=== PATIENT | male | born 1945 | race Caucasian/White ===

== ENCOUNTER 2021-05-16 06:00 | Outpatient (RCR) | payer OTHER, SELFPAY | END 2021-05-20 23:59 | disposition home or self-care (01) | LOC: TPT 06:00 | PROVIDERS: Visit Provider Physician Assistant | DX: R26.9 Unspecified abnormalities of gait and mobility (principal) | CPT/HCPCS: 97110; 97140; 97163 ==

== ENCOUNTER 2021-05-21 06:00 | Outpatient (RCR) | payer OTHER, SELFPAY | END 2021-06-20 23:59 | disposition home or self-care (01) | LOC: TPT 06:00 | PROVIDERS: Visit Provider Physician Assistant | DX: R26.9 Unspecified abnormalities of gait and mobility (principal) | CPT/HCPCS: 97110; 97116; 97140; 97164 ==

== ENCOUNTER 2021-06-21 06:00 | Outpatient (RCR) | payer OTHER, SELFPAY | END 2021-07-11 23:59 | disposition home or self-care (01) | LOC: TPT 06:00 | PROVIDERS: Visit Provider Physician Assistant | DX: R26.9 Unspecified abnormalities of gait and mobility (principal) | CPT/HCPCS: 97110 ==

== ENCOUNTER 2022-12-10 06:00 | Outpatient (RCR) | payer OTHER, SELFPAY | END 2022-12-18 23:59 | disposition home or self-care (01) | LOC: TPT 06:00 | PROVIDERS: Visit Provider Nurse Practitioner | DX: Z47.1 Aftercare following joint replacement surgery (principal); Z96.652 Presence of left artificial knee joint | CPT/HCPCS: 97110; 97162 ==

== ENCOUNTER 2022-12-19 06:00 | Outpatient (RCR) | payer OTHER, SELFPAY | END 2023-01-18 23:59 | disposition home or self-care (01) | LOC: TPT 06:00 | PROVIDERS: Visit Provider Nurse Practitioner | DX: Z47.1 Aftercare following joint replacement surgery (principal); Z96.652 Presence of left artificial knee joint | CPT/HCPCS: 97110 ==

== ENCOUNTER 2023-01-19 06:00 | Outpatient (RCR) | payer OTHER, SELFPAY | END 2023-01-29 23:59 | disposition home or self-care (01) | LOC: TPT 06:00 | PROVIDERS: Visit Provider Nurse Practitioner | DX: Z47.1 Aftercare following joint replacement surgery (principal); Z96.652 Presence of left artificial knee joint | CPT/HCPCS: 97110 ==

== ENCOUNTER 2023-05-21 06:00 | Outpatient (RCR) | payer OTHER, SELFPAY | END 2023-06-20 23:59 | disposition home or self-care (01) | LOC: TPT 06:00 | PROVIDERS: Visit Provider Orthopaedic Surgery | DX: Z47.1 Aftercare following joint replacement surgery (principal); Z96.651 Presence of right artificial knee joint | CPT/HCPCS: 97110; 97161 ==

== ENCOUNTER 2023-06-21 06:00 | Outpatient (RCR) | payer OTHER, SELFPAY | END 2023-07-09 23:59 | disposition home or self-care (01) | LOC: TPT 06:00 | PROVIDERS: Visit Provider Orthopaedic Surgery | DX: Z47.1 Aftercare following joint replacement surgery (principal); Z96.651 Presence of right artificial knee joint | CPT/HCPCS: 97110 ==

== ENCOUNTER → 2024-09-07 14:11 | Outpatient (BNVA) | payer OTHER, SELFPAY | PROVIDERS: Visit Provider Orthopaedic Surgery | DX: X58.XXXA Exposure to other specified factors, initial encounter (principal); M54.41 Lumbago with sciatica, right side; M54.42 Lumbago with sciatica, left side; G89.29 Other chronic pain; S32.000A Wedge compression fracture of unspecified lumbar vertebra, initial encounter for closed fracture | CPT/HCPCS: 72100; 99203 ==

== ENCOUNTER 2024-09-25 09:15 | Emergency (ER) | payer OTHER, MEDICARE, SELFPAY ==
[2024-09-25 09:32] VITALS: BP 148/78; PULSE 56; RESP 17; TEMP 36.4; O2SAT 100; BMI 33.0
[2024-09-25 09:38] LABS: Basophils # 0.1 10^3/uL (0.0-0.1); Basophils % 0.9 %; Eosinophils # 0.1 10^3/uL (0.0-0.8); Eosinophils % 2.1 %; Hematocrit 38.1 % (37-53); Lymphocytes # 1.2 10^3/uL (0.8-4.8); Lymphocytes % 20.8 %; Mean Corpuscular HGB Conc 32.3 g/dL (30-55); Mean Corpuscular Hemoglobin 33.2 pg (27-33); Mean Corpuscular Volume 102.7 fl (82-101); Mean Platelet Volume 8.9 fL (7.4-10.4); Monocytes # 0.6 10^3/uL (0.2-0.9); Monocytes % 10.6 %; Neutrophils # 3.66 10^3/uL (1.8-7.7); Neutrophils % 65.4 %; Nucleated Red Blood Cells % 0 %; Platelet Count 202 10^3/cmm (157-399); Red Blood Count 3.71 10^6/uL (3.85-5.65); Red Cell Distribution Width 12.9 % (12.1-15.1); White Blood Count 5.59 10^3/uL (3.29-11.43)
[2024-09-25 09:54] LABS: Alanine Aminotransferase 32 U/L (0-41); Albumin Level 4.2 g/dL (3.5-5.2); Alkaline Phosphatase 67 U/L (40-130); Anion Gap 13.2 (5-19); Aspartate Amino Transferase 53 U/L (0-40); Blood Urea Nitrogen 15 mg/dL (8-23); Calcium 9.2 mg/dL (8.5-10.5); Carbon Dioxide 27 mmol/L (22-29); Chloride 103 mmol/L (98-107); Creatinine Clr Calc Pharmacy 84.1026; Glucose 95 mg/dL (65-115); Osmolality Calculated 289 mOsm/kg (285-295); Potassium 4.2 mmol/L (3.5-5.1); Sodium 139 mmol/L (136-145); Total Bilirubin 0.5 mg/dL (0.15-1.2); Total Protein 7.2 g/dL (6.6-8.7)
--- NOTE | 2024-09-25 09:55 | XR_ITS ---
WS: [id number] Exam: XR finger LT min 2V [id number] Date/Time of Exam: 09/25/2024 10:08 AM Reason For Exam: laceration/swelling; ring The fourth finger is targeted for radiographic evaluation. There is a laceration of the distal ring finger. No fracture identified. Degenerative narrowing of the IP joints. A ring obscures parts of the proximal fourth phalanx. No soft tissue foreign bodies are visualized. XR/XR finger LT min 2V [id number] IMPRESSION: 1. Laceration and soft tissue swelling of the fourth finger. No bony injury.
--- NOTE | 2024-09-25 11:27 | ED_ITS ---
HPI - Wound/Laceration 2 General: Chief Complaint: Wound/Laceration Stated Complaint: sliced finger, swelled up Time Seen by Provider: 09/25/24 09:18 Source: patient Mode of arrival: ambulatory Limitations: no limitations History of Present Illness: Patient is a nice 79-year-old male presents to ED today for concern of an infection involving his left finger. Patient states approximately 5 to 6 days ago he accidentally lacerated the tip of his left ring finger with his pocket knife. He states since then he thinks he has developed an infection to the distal aspect of his finger as he has noticed redness and swelling. He does have a ring to the finger that he reports is tight. He is declining me removing this today stating I have worn it for 61 years and I would like to keep it . Patient denies numbness, tingling, loss of sensation to the digit. Tetanus is up-to-date. He has no systemic symptoms. Onset (ago): day(s) Extremity Location: Left: hand (finger) Place: home Patient tetanus UTD: Yes Context: accidental Associated symptoms: Reports no associated symptoms; Denies fever(s) Related Data Home Medications ?Medication ?Instructions ?Recorded ?Confirmed hydrocodone 5 mg-acetaminophen 325 1 tab PO Q8H PRN 09/07/24 mg tablet Previous Rx's ?Medication ?Instructions ?Recorded sulfamethoxazole 800 1 tab PO BID 7 days #14 tabs 09/25/24 mg-trimethoprim 160 mg tablet (Bactrim DS) Allergies Allergy/AdvReac Type Severity Reaction Status Date / Time NSAIDS (Non-Steroidal Allergy ADR-Gastrointestinal Verified 09/25/24 09:35 Anti-Inflamma Upset Review of Systems 2 Const: Denies: fever(s) Musc: Reports: extremity pain and extremity swelling; Denies: joint pain or joint swelling Neuro: Denies: numbness in extremities or sensory changes PFSH ED 2 PFSH: Social History Smoking and tobacco/nicotine status: unknown if used tobacco/nicotine Physical Exam 2 Const: COMMON NORMALS: no acute distress, average body habitus, no limitations, healthy appearing, alert and well nourished Extremity: GENERAL: Yes normal exam except as noted LEFT UPPER EXTREMITY: Y es hand & digits Left hand and digits: Yes neurovascular exam (normal) OTHER: healing/callused distal tip laceration L ring finger which was his initial injury site; he has erythema/underlying blood to dorsal distal tip of finger just proximal to cuticle; no underlying abscess formation; no purulent drainage; no circumferential erythema; no streaking Neuro: COMMON NORMALS: moves all extremities, no focal motor deficits and no sensory deficits noted SENSORIUM/ORIENTATION: Yes alert Course 2 Vital Signs: Vital signs: Vital Signs Temperature 97.6 F 09/25/24 09:32 Pulse Rate 56 L 09/25/24 09:32 Respiratory Rate 17 09/25/24 09:32 Blood Pressure 148/78 09/25/24 09:32 Pulse Oximetry 100 09/25/24 09:32 Oxygen Delivery Me thod Room Air 09/25/24 09:32 MDM - Wound/Laceration Medical Decision Making Patient here for mild infection involving the distal aspect of his left ring finger following a laceration 5 to 6 days ago. XR showing no bony injury. Labs obtained from triage are unremarkable. He is refusing to allow me to cut off his ring today. There is no evidence of vascular compromise from the ring although it is tight. Patient will be given IM antibiotics prior to discharge will be placed on antibiotics at home. Return ED precautions given. Lab Data I reviewed the patient's lab results. 09/25/24 09:32 09/25/24 09:32 Radiology Impressions Finger X-Ray 09/25/24 09:55 IMPRESSION: 1. Laceration and soft tissue swelling of the fourth finger. No bony injury. Laboratory Results WBC 5.59 10^3/uL (3.29-11.43) 09/25/24 09:32 RBC 3.71 10^6/uL (3.85-5.65) L 09/25/24 09:32 Hgb 12.30 g/dL (11.27-16.99) 09/25/24 09:32 Hct 38.1 % (37-53) 09/25/24 09:32 MCV 102.7 fl (82-101) H 09/25/24 09:32 MCH 33.2 pg (27-33) H 09/25/24 09:32 MCHC 32.3 g/dL (30-55) 09/25/24 09:32 RDW 12.9 % (12.1-15.1) 09/25/24 09:32 Plt Count 202 10^3/cmm (157-399) 09/25/24 09:32 MPV 8.9 fL (7.4-10.4) 09/25/24 09:32 Neut % (Auto) 65.4 % 09/25/24 09:32 Lymph % (Auto) 20.8 % 09/25/24 09:32 Whiteside % (Auto) 10.6 % 09/25/24 09:32 Eos % (Auto) 2.1 % 09/25/24 09:32 Baso % (Auto) 0.9 % 09/25/24 09:32 Neut # (Auto) 3.66 10^3/uL (1.8-7.7) 09/25/24 09:32 Lymph # (Auto) 1.2 10^3/uL (0.8-4.8) 09/25/24 09:32 Whiteside # (Auto) 0.6 10^3/uL (0.2-0.9) 09/25/24 09:32 Eos # (Auto) 0.1 10^3/uL (0.0-0.8) 09/25/24 09:32 Baso # (Auto) 0.1 10^3/uL (0.0-0.1) 09/25/24 09:32 Nucleated RBC % (auto) 0 % 09/25/24 09:32 Nucleated RBCs # 0.0 /100WBC 09/25/24 09:32 Sodium 139 mmol/L (136-145) 09/25/24 09:32 Potassium 4.2 mmol/L (3.5-5.1) 09/25/24 09:32 Chloride 103 mmol/L (98-107) 09/25/24 09:32 Carbon Dioxide 27 mmol/L (22-29) 09/25/24 09:32 Anion Gap 13.2 (5-19) 09/25/24 09:32 BUN 15 mg/dL (8-23) 09/25/24 09:32 Creatinine 0.9 mg/dL (0.7-1.2) 09/25/24 09:32 GFR Calculation Not Reportable 09/25/24 09:32 Glucose 95 mg/dL (65-115) 09/25/24 09:32 Calculated Osmolality 289 mOsm/kg (285-295) 09/25/24 09:32 Calcium 9.2 mg/dL (8.5-10.5) 09/25/24 09:32 Total Bilirubin 0.5 mg/dL (0.15-1.2) 09/25/24 09:32 AST 53 U/L (0-40) H 09/25/24 09:32 ALT 32 U/L (0-41) 09/25/24 09:32 Alkaline Phosphatase 67 U/L (40-130) 09/25/24 09:32 Total Protein 7.2 g/dL (6.6-8.7) 09/25/24 09:32 Albumin 4.2 g/dL (3.5-5.2) 09/25/24 09:32 Globulin 3.0 g/dL (1.3-4.6) 09/25/24 09:32 All radiology interpretation(s) finalized by discharge Discharge Plan Discharge Patient Disposition: Home Clinical Impression: Infected cut of finger Condition: Stable Prescriptions: New sulfamethoxazole-trimethoprim [Bactrim DS] 800-160 mg tablet 1 tab PO BID 7 Days Qty: 14 0RF No Action hydrocodone-acetaminophen 5-325 mg tablet 1 tab PO Q8H PRN Discharge Orders: Discharge ED (Routine); Ordered 09/25/24 Ordered By: Benita Delong Activity Restrictions/Additional Instructions: As we discussed, keep wound clean with warm soap and water. You can also soak finger in warm soapy water. Ice and elevate to help with swelling. If your ring gets any tighter, you need to seek medical re-evaluation to have it cut off. This was offered today but you declined. You were given IM antibiotics prior to discharge. Prescription has been called into your pharmacy of choice. Please start these antibiotics immediately. If finger is not improving and certainly if it is worsening over the next 48 hours, you need to seek medical re-evaluation. Print Language: Irish Coding Level of Care Code ED Cab Station Attendant for Sandra Shelley
[2024-09-25] MEDS: tetanus-dipt-pertussis 0.5 mL SDV IM (11:36)
[2024-09-25] MEDS: ceFAZolin 1,000 MG in water for injection-sterile 2.5 ML 1 MG IM (11:41)
[2024-09-25 11:53] VITALS: BP 158/81; PULSE 53; O2SAT 94
== END 2024-09-25 11:55 | disposition home or self-care (01) ==
PROVIDERS: Family Medicine; Emergency Provider Physician Assistant
DX: L03.012 Cellulitis of left finger (principal); Z23 Encounter for immunization
CPT/HCPCS: 36415; 73140; 80053; 85025; 90471; 90715; 99284; J0690

== ENCOUNTER 2024-10-07 21:20 | Emergency (ER) | payer OTHER, MEDICARE, SELFPAY ==
--- NOTE | 2024-10-07 21:21 | XRR_ITS ---
PROCEDURE INFORMATION: Exam: XR Left Hand Exam date and time: 10/07/2024 9:34 PM Age: 79 years old Clinical indication: Injury or trauma; Other: Previous cut by pocket knife; Laceration and swelling (edema); Injury date: 09/25/2024; Injury details: C/O pain/ redness/ swelling to the left ring finger. PT seen on 09/25/24 after reportedly cutting his finger with a pocket knife. Was given abx, which he reports as completed. PT states that it is just not getting TECHNIQUE: Imaging protocol: Radiologic exam of the left hand. Views: 3 or more views. COMPARISON: No relevant prior studies available. FINDINGS: Bones/joints: No acute fracture or dislocation. Degenerative joint disease. Soft tissues: No radiopaque foreign body. Metallic ring at the 4th finger. XR/XR hand LT min 3V* [id number] IMPRESSION: No acute bony findings.
--- NOTE | 2024-10-07 22:36 | W.ED.EXTPRO ---
HPI - Extremity Problem General: Chief complaint: Extremity Injury, Upper Stated complaint: left ring finger injury Time Seen by Provider: 10/07/24 21:30 Source: patient Mode of arrival: ambulatory Limitations: no limitations History of Present Illness: Patient is an 79-year-old male that presents to the emergency department with tenderness and swelling of the left ring finger. He states he was treated recently for an infection that occurred after cutting himself on the fingertip with a pocket knife. He states he took the medications as directed, it started getting better but over the last day or 2 the swelling has worsened. He denies any fever or chills. He denies any nausea or vomiting. He presents to the emergency department for further evaluation and treatment. He states his tetanus immunization is up-to-date. Patient states he followed up with his [place] doctor previously and can follow-up again. Associated symptoms: Deny chest pain or fever(s) Related Data Home Medications ?Medication ?Instructions ?Recorded ?Confirmed hydrocodone 5 mg-acetaminophen 325 1 tab PO Q8H PRN 09/07/24 09/07/24 mg tablet Previous Rx's ?Medication ?Instructions ?Recorded doxycycline hyclate 100 mg capsule 100 mg PO BID 10 days #19 caps 10/07/24 Allergies Allergy/AdvReac Type Severity Reaction Status Date / Time NSAIDS (Non-Steroidal Allergy ADR-Gastrointestinal Verified 10/07/24 21:26 Anti-Inflamma Upset Review of Systems Const: Denies: fever(s) or chills Eyes: Denies: change in vision, eye discharge or eye redness ENMT: Denies: dry mouth Card: Denies: chest pain Resp: Denies: dyspnea, productive cough, non-productive cough or wheezing GI: Denies: abdominal pain, nausea or vomiting : Denies: flank pain Musc: Reports: extremity swelling (Left ring finger and bilateral lower extremities.); Denies: back pain Skin/Breast: Reports: erythema (Left ring finger, redness, mild swelling and pustule noted) and other (Small pustule noted on the left ring finger) Neuro: Denies: numbness in extremities or weakness in extremities Psych: Denies: anxiety Endo: Denies: polydipsia or tired all the time Himanshu/Lymph: Denies: petechiae All/Imm: Denies: urticaria, throat swelling or tongue swelling PFSH ED PFSH: Social History (Updated 10/07/24 @ 23:16 by SUSAN Cortés) Smoking and tobacco/nicotine status: never used tobacco/nicotine Physical Exam Const: COMMON NORMALS: no acute distress GENERAL APPEARANCE: cooperative HENMT: COMMON NORMALS: normocephalic, atraumatic and external ears normal HEAD & SCALP: normocephalic and atraumatic EXTERNAL EAR: Yes external ears normal Eye: COMMON NORMALS: conjunctivae normal CONJUNCTIVA: Yes conjunctivae normal Neck/C-Spine: COMMON NORMALS: full ROM Cardio: COMMON NORMALS: regular rhythm RATE: bradycardic RHYTHM: regular rhythm Extremity: COMMON NORMALS: full ROM and capillary refill normal LEFT UPPER EXTREMITY: Yes hand & digits (Redness and swelling to the left ring finger with small pustule) Psych: COMMON NORMALS: mental status grossly normal Skin: GENERAL SKIN EXAM: erythema (Left ring finger with a small pustule) Procedures Abscess I/D Site: other (Left middle finger) Side (if applicable): left Local Anesthetic: lidocaine 2% Amount of anesthesia used (mL): 3 (Digital block) Technique: needle aspiration Amount of fluid expressed (mL): 0.1 (Scant fluid aspirated) Irrigation: Yes Packing used?: none Foreign Body Removal Site: left Description of foreign body: other (Ring) Technique: other (The ring was cut off with a manual ring cutter) Confirmed by:: direct visualization Complications: none Post-procedure exam: awake, alert Neurovascular: normal capillary fill and distal light touch sensation intact Course Vital Signs: Vital signs: Vital Signs Pulse Rate 58 L 10/07/24 23:02 Respiratory Rate 16 10/07/24 23:02 Blood Pressure 142/72 10/07/24 23:02 Pulse Oximetry 98 10/07/24 23:02 MDM - Extremity (Nontraumatic) Medical Decision Making Patient tolerated procedure well with no immediate complications. First the ring had to be cut off because the swelling of the finger not allow me to remove the ring. Patient tolerated this fairly well. After the ring was removed additional block was applied and needle aspiration was performed of the finger. There was scant amount of fluid that was obtained and sent to the lab for Gram stain and culture. Patient will be started on doxycycline to use as directed. I recommended that he follow-up with his primary care provider for further evaluation and treatment and return to the emergency department with any worsening symptoms. Differential Diagnosis Likely cellulitis (And possible abscess left ring finger) Lab Data I reviewed the patient's lab results. Radiology Impressions Hand X-Ray 10/07/24 21:21 IMPRESSION: No acute bony findings. All radiology interpretation(s) finalized by discharge Critical Care Time Critical Care Time: Critical Care Time: No Discharge Plan Discharge Patient Disposition: Home Clinical Impression: Cellulitis of ring finger of left hand, Pustule Condition: Stable Prescriptions: New doxycycline hyclate 100 mg capsule 100 mg PO BID 10 Days Qty: 19 0RF No Action hydrocodone-acetaminophen 5-325 mg tablet 1 tab PO Q8H PRN Discharge Orders: Discharge ED (Routine); Ordered 10/07/24 Ordered By: Manuel Colby Referrals: Gail Alcaraz MD [Primary Care Provider] - Discharge Diet: Usual diet Discharge Activity: Resume usual activity Patient Instructions: Cellulitis (ED), Opioid Safety, Pain Management Activity Restrictions/Additional Instructions: Take medications as directed. Use warm compresses to the area 15 minutes at a time, 5 times throughout the day. If swelling worsens after the heat, you may wait 10 minutes and then use ice for 10 to 15 minutes. Follow-up with your doctor next week for recheck. Return to the emergency department with any worsening symptoms such as increased pain, fever, pus draining or any other worsening symptoms. Print Language: Slovak Coding Level of Care Code ED Inspector Sheet [employer] Parts for Sandra Shelley
[2024-10-07] MEDS: doxycycline 100 mg Tablet PO (22:44)
[2024-10-07] MEDS: bacitracin ointment Pkt 1 EACH TOPICAL (22:44)
[2024-10-07 23:02] VITALS: BP 142/72; PULSE 58; RESP 16; O2SAT 98
== END 2024-10-07 23:04 | disposition home or self-care (01) ==
PROVIDERS: Emergency Provider Physician Assistant; PCP Family Medicine
DX: L03.011 Cellulitis of right finger (principal); L08.9 Local infection of the skin and subcutaneous tissue, unspecified
CPT/HCPCS: 12345; 26010; 73130; 87070; 99283; J9999